=== PATIENT | male | born 2000 | race Caucasian/White ===

== ENCOUNTER 2020-02-11 14:40 | Emergency (ER) | payer OTHER ==
[~2020-02-11] VITALS: Ht 172.7 cm; Wt 104.3 kg
[~2020-02-11 14:40] MED LIST: AUGMENTIN 875-1 EACH PO; TYLENOL WITH C1 EACH PO
[2020-02-11 15:23] VITALS: BP 138/85
== END 2020-02-11 15:50 | disposition home or self-care (01) ==
LOC: FSED 14:40
DX: L05.01 Pilonidal cyst with abscess (principal)
CPT/HCPCS: 99283